=== PATIENT | female | born 2000 | race African-American/Black ===

== ENCOUNTER 2020-01-02 02:13 | Emergency (ER) | payer SELFPAY ==
[2020-01-02] MEDS ORDERED: LEVETIRACETAM 500 MG/5 ML VIAL IV ONE (02:48)
[2020-01-02] MEDS ORDERED: THIAMINE 200 MG/2 ML INJ ONE (02:48)
[2020-01-02 02:49] LABS: Absolute Lymphocytes (CBC) 3.1 K/uL (0.7-4.9); Basophils % 0.5 % (0-1.3); Hematocrit 38.6 % (36.0-45.0); Lymphocytes % 36.8 % (15.3-44.8); Protime INR 1.07; RBC Red Blood Cell Count 4.26 M/uL (3.86-4.86)
[2020-01-02] MEDS ORDERED: MULTIVITAMINS 10 ML VIAL (INJ) IV ONE (02:49)
[2020-01-02] MEDS ORDERED: NA CHLORIDE 0.9% 2,000 ML ONE (02:50)
[2020-01-02] MEDS ORDERED: FOLIC ACID 5 MG/ML VIAL ONE (02:50)
[2020-01-02 03:04] LABS: ALT/SGPT 17 U/L (12-78); AST/SGOT 20 U/L (15-37); Alkaline Phosphatase 78 U/L (45-117); BUN Blood Urea Nitrogen 11 mg/dL (7-18); Bicarbonate 22 mmol/L (21-32); Bilirubin Direct 0.1 mg/dL (0-0.2); Bilirubin Total 0.2 mg/dL (0.2-1.0); Glucose Level 87 mg/dL (74-106); Potassium 3.3 mmol/L (3.5-5.1); Protein, Total 7.8 g/dL (6.4-8.2); Sodium Level 144 mmol/L (136-145)
[2020-01-02 03:35] LABS: Urine Blood NEGATIVE (NEG); Urine Glucose NEGATIVE (NEG); Urine Protein NEGATIVE (NEG); Urine Specific Gravity 1.015 (1.005-1.030)
[2020-01-02 03:39] LABS: Barbiturates NEGATIVE (NEGATIVE); Benzodiazepines NEGATIVE (NEGATIVE); Cocaine NEGATIVE (NEGATIVE); METHAMPHETAM NEGATIVE (NEGATIVE); Methadone NEGATIVE (NEGATIVE); Opiates NEGATIVE (NEGATIVE); Phencyclidine NEGATIVE (NEGATIVE); THC Cannibis NEGATIVE (NEGATIVE)
--- NOTE | 2020-01-02 04:22 | EDPHYS ---
Physician Documentation [facility] Name: Alicia Velez Age: 19 yrs Sex: Female : 2000 Arrival Date: 01/02/2020 Time: 02:19 Bed 3 Private MD: MAXIMILIANO Physician Angel Ryan HPI: 01/01 02:32 This 19 yrs old Black Female presents to ER via EMS with complaints of seizure after teetee drinking. 02:32 The patient presents after having a single isolated seizure, that lasted an unknown teetee period of time. Character of seizure(s): Loss of consciousness: the patient experienced loss of consciousness, Motor activity: generalized. Seizure onset: just prior to arrival. Context: the seizure(s) was witnessed, by a significant other, boyfriend. Seizure Hx: Last seizure: The patient's last seizure was approximately 3 year(s) ago. Associated injury: The patient did not suffer any apparent associated injury. EMS care: none. The patient has not experienced similar symptoms in the past. [employer] SPECIALIST: 03:00 LMP 11/2019 Historical: - Allergies: 02:28 No Known Allergies; - Home Meds: 02: None [Active]; - PMHx: 02:28 Seizures; - PSHx: 02: None; - Immunization history:: Adult Immunizations up to date. - Social history:: Smoking status: Patient reports the use of cigarette tobacco products, smokes one-half pack cigarettes per day. - Family history:: not pertinent. ROS: 02:32 Constitutional: Negative for fever, chills, and weight loss, Eyes: Negative for injury, teetee pain, redness, and discharge, ENT: Negative for injury, pain, and discharge, Neck: Negative for injury, pain, and swelling, Cardiovascular: Negative for chest pain, palpitations, and edema, Respiratory: Negative for shortness of breath, cough, wheezing, and pleuritic chest pain, Abdomen/GI: Negative for abdominal pain, nausea, vomiting, diarrhea, and constipation, Back: Negative for injury and pain, : Negative for injury, bleeding, discharge, and swelling, MS/Extremity: Negative for injury and deformity, Skin: Negative for injury, rash, and discoloration, Psych: Negative for depression, anxiety, suicide ideation, homicidal ideation, and hallucinations, Allergy/Immunology: Negative for hives, rash, and allergies, Endocrine: Negative for neck swelling, polydipsia, polyuria, polyphagia, and marked weight changes, Hematologic/Lymphatic: Negative for swollen nodes, abnormal bleeding, and unusual bruising. 02:32 Neuro: Positive for seizure activity. Exam: 02:32 Constitutional: This is a well developed, well nourished patient who is awake, alert, teetee and in no acute distress. Head/Face: Normocephalic, atraumatic. Eyes: Pupils equal round and reactive to light, extra-ocular motions intact. Lids and lashes normal. Conjunctiva and sclera are non-icteric and not injected. Cornea within normal limits. Periorbital areas with no swelling, redness, or edema. ENT: Nares patent. No nasal discharge, no septal abnormalities noted. Tympanic membranes are normal and external auditory canals are clear. Oropharynx with no redness, swelling, or masses, exudates, or evidence of obstruction, uvula midline. Mucous membranes moist. Neck: Trachea midline, no thyromegaly or masses palpated, and no cervical lymphadenopathy. Supple, full range of motion without nuchal rigidity, or vertebral point tenderness. No Meningismus. Chest/axilla: Normal chest wall appearance and motion. Nontender with no deformity. No lesions are appreciated. Cardiovascular: Regular rate and rhythm with a normal S1 and S2. No gallops, murmurs, or rubs. Normal PMI, no JVD. No pulse deficits. Respiratory: Lungs have equal breath sounds bilaterally, clear to auscultation and percussion. No rales, rhonchi or wheezes noted. No increased work of breathing, no retractions or nasal flaring. Abdomen/GI: Soft, non-tender, with normal bowel sounds. No distension or tympany. No guarding or rebound. No evidence of tenderness throughout. Back: No spinal tenderness. No costovertebral tenderness. Full range of motion. Female : Normal external genitalia. Skin: Warm, dry with normal turgor. Normal color with no rashes, no lesions, and no evidence of cellulitis. MS/ Extremity: Pulses equal, no cyanosis. Neurovascular intact. Full, normal range of motion. Psych: Awake, alert, with orientation to person, place and time. Behavior, mood, and affect are within normal limits. 02:32 Neuro: Orientation: unable to test, Mentation: slow to respond, unable to test, Memory: unable to test, Cranial nerves: grossly normal, is grossly normal based on the patient's age, no acute changes, Cerebellar function: is grossly normal, Motor: is normal, Sensation: is normal, no obvious gross deficits, appropriate no acute changes, Gait: not tested. Deep tendon reflexes are 2+ (normal) in the bilateral brachioradialis, bicep, tricep and patellar and Achilles tendons, Babinski testing is normal, seizure activity, is not displayed by the patient. 03:24 ECG was reviewed by the Attending Physician. teetee Vital Signs: 02:21 BP 130 / 90; Pulse 73; Resp 18; Temp 98.2; Pulse Ox 99% on R/A; Weight 58.97 kg; Height wh 5 ft. 4 in. (162.56 cm); 03:00 BP 130 / 81; Pulse 91; Resp 18; Pulse Ox 100% on R/A; wh 04:06 Pulse 88; Resp 18; Pulse Ox 100% on R/A; mg2 04:47 BP 108 / 70; mg2 02:21 Body Mass Index 22.31 (58.97 kg, 162.56 cm) wh MDM: 02:36 Data reviewed: vital signs, nurses notes, lab test result(s), EKG, radiologic studies, teetee CT scan, plain films. 02:38 Patient medically screened. teetee 04:18 Differential diagnosis: drug overdose, cardiac arrhythmia, seizure, TIA. Data teetee interpreted: library monitor: rate is 88 beats/min, rhythm is normal sinus rhythm, Pulse oximetry: on room air is 100 %. Test interpretation: by ED physician or midlevel provider: ECG, plain radiologic studies. Counseling: I had a detailed discussion with the patient and/or guardian regarding: the historical points, exam findings, and any diagnostic results supporting the discharge/admit diagnosis, the presence of at least one elevated blood pressure reading (>120/80) during this emergency department visit, lab results, radiology results, the need for outpatient follow up, for definitive care, a neurologist. ED course: pt stable, all labs and findings discussed with the patient. 01/01 02:23 Order name: Acetaminophen; Complete Time: 03:21 teetee 01/01 02:23 Order name: Basic Metabolic Panel; Complete Time: 03: teetee 01/01 02:23 Order name: CBC with Diff; Complete Time: 03:21 [facility] 01/01 02:23 Order name: ETOH Level; Complete Time: 03:21 [facility] 01/01 02:23 Order name: Hepatic Function; Complete Time: 03:21 [facility] 01/01 02:23 Order name: PT-INR; Complete Time: 03:21 [facility] 01/01 02:23 Order name: Ptt, Activated; Complete Time: 03:21 [facility] 01/01 02:23 Order name: Salicylate; Complete Time: 03:21 [facility] 01/01 02:23 Order name: Urine Drug Screen; Complete Time: 04:18 [facility] 01/01 02:23 Order name: CT Head Brain wo Cont [facility] 01/01 02:30 Order name: Glucose, Ancillary Testing [facility] 01/01 03:25 Order name: Urine Dipstick--Ancillary (enter results); Complete Time: 04:18 [facility] 01/01 03:25 Order name: Urine --Ancillary (enter results); Complete Time: 04:18 [facility] 01/01 02:23 Order name: Urine Test (obtain specimen); Complete Time: 03:09 [facility] 01/01 02:23 Order name: EKG; Complete Time: 02:25 [facility] 01/01 02:23 Order name: EKG - Nurse/Tech; Complete Time: 02:35 [facility] 01/01 02:23 Order name: IV Saline Lock; Complete Time: 02:35 [facility] 01/01 02:23 Order name: Labs collected and sent; Complete Time: 02:35 [facility] 01/01 02:23 Order name: Urine Dipstick-Ancillary (obtain specimen); Complete Time: 03:09 [facility] 01/01 03:24 Order name: PO challenge: juice; Complete Time: 05:15 [facility] EC:24 Rate is 81 beats/min. Rhythm is regular. QRS [place] is Normal. NE interval is normal. QRS teetee interval is prolonged. QT interval is normal. No Q waves. T waves are Normal. No ST changes noted. Clinical impression: NSR w/ Non-specific ST/T Changes and No evidence of ischemia. Interpreted by me. Reviewed by me. Administered Medications: :47 Drug: Thiamine 100 mg Route: IV; Rate: bolus; Site: right antecubital; mg2 05:15 Follow up: Response: No adverse reaction; IV Status: Completed infusion 02:47 Drug: Banana Bag - (NS 0.9% 1000 ml, foLIC Acid 1 mg, Thiamine 100 mg, Multivitamin 1 mg2 amp) Route: IV; Rate: 125 ml/hr; Site: right antecubital; 05:15 Follow up: Response: No adverse reaction; IV Status: Order to discontinue infusion 02:49 Drug: Keppra 1000 mg Route: IV; Rate: per protocol; Site: right antecubital; mg2 05:15 Follow up: Response: No adverse reaction; IV Status: Completed infusion 02:49 Drug: NS 0.9% 1000 ml Route: IV; Rate: 1 bolus; Site: right antecubital; mg2 05:15 Follow up: Response: No adverse reaction; IV Status: Completed infusion Disposition: 01/02/20 04:21 Discharged to Home. Impression: Epileptic seizures related to external causes, Hypokalemia, Alcohol abuse with intoxication. - Condition is Fair. - Discharge Instructions: Alcohol Intoxication, Potassium Content of Foods, Seizure, Adult, Alcohol Intoxication, [id number], Alcohol Abuse and Nutrition, Seizure, Adult, [id number], Hypokalemia. - Prescriptions for Keppra 500 mg Oral Tablet - take 1 tablet by ORAL route every 12 hours; 20 tablet. Pepcid 20 mg Oral Tablet - take 1 tablet by ORAL route every 12 hours for 10 days; 20 tablet. Vitamin 27- 0.8 mg Oral Tablet - take 1 tablet by ORAL route once daily; 30 tablet. - Medication Reconciliation Form, Thank You Letter, Antibiotic Education, Prescription Opioid Use form. - Follow up: Private Physician; When: 2 - 3 days; Reason: Recheck today's complaints, Continuance of care, Re-evaluation by your physician. Follow up: Ramiro Siu; When: 2 - 3 days; Reason: Recheck today's complaints, Re-evaluation by your physician. - Problem is new. - Symptoms have improved. Signatures: Dispatcher [employer] EDMS Angel Ryan MD MD cha Habalo, Les Aidan Melendez, RN RN mg2 Corrections: (The following items were deleted from the chart) 05:25 04:21 01/02/2020 04:21 Discharged to Home. Impression: Epileptic seizures related to external causes; Hypokalemia; Alcohol abuse with intoxication. Condition is Fair. Discharge Instructions: Alcohol Intoxication, Potassium Content of Foods, Seizure, Adult, Alcohol Intoxication, Ckvf-fz-Ppho, Alcohol Abuse and Nutrition, Seizure, Adult, Ufwh-bz-Xpak, Hypokalemia. Prescriptions for Keppra 500 mg Oral Tablet - take 1 tablet by ORAL route every 12 hours; 20 tablet, Pepcid 20 mg Oral Tablet - take 1 tablet by ORAL route every 12 hours for 10 days; 20 tablet, Vitamin 27-0.8 mg Oral Tablet - take 1 tablet by ORAL route once daily; 30 tablet. and Forms are Medication Reconciliation Form, Thank You Letter, Antibiotic Education, Prescription Opioid Use. Follow up: Private Physician; When: 2 - 3 days; Reason: Recheck today's complaints, Continuance of care, Re-evaluation by your physician. Follow up: Ramiro Siu; When: 2 - 3 days; Reason: Recheck today's complaints, Re-evaluation by your physician. Problem is new. Symptoms have improved. teetee
--- NOTE | 2020-01-02 04:22 | ER ---
Nurse's Notes [facility] Name: Alicia Velez Age: 19 yrs Sex: Female : 2000 Arrival Date: 01/02/2020 Time: 02:19 Bed 3 Private MD: Diagnosis: Epileptic seizures related to external causes;Hypokalemia;Alcohol abuse with intoxication Presentation: 01/01 02:21 Chief complaint: EMS states: was toned for seizure activity and vomiting. Pt had wh alcohol tonight and haven't had a seizure activity in 3 years. Coronavirus screen: Proceed with normal triage. Patient denies a cough. Patient denies shortness of breath or difficulty breathing. Patient denies measured and/or subjective temperature greater than 100.4F prior to today's visit. Patient denies travel on a cruise ship or to a country the [facility] currently lists as an affected area. Patient denies contact with known and/or suspected case of COVID-19. Ebola Screen: Patient negative for fever greater than or equal to 101.5 degrees Fahrenheit, and additional compatible Ebola Virus Disease symptoms Patient denies exposure to infectious person. Initial Sepsis Screen: Does the patient meet any 2 criteria? No. Patient's initial sepsis screen is negative. Does the patient have a suspected source of infection? No. Patient's initial sepsis screen is negative. Risk Assessment: Do you want to hurt yourself or someone else? Patient reports no desire to harm self or others. Onset of symptoms was January 02, 2020. 02:21 Method Of Arrival: EMS: [facility] 02:21 Acuity: [facility] 3 RN UTILIZATION MANAGEMENT UM: 03:00 [facility] 11/2019 Historical: - Allergies: 02:28 No Known Allergies; - Home Meds: 02:28 None [Active]; - PMHx: 02:28 Seizures; - PSHx: 02:28 None; - Immunization history:: Adult Immunizations up to date. - Social history:: Smoking status: Patient reports the use of cigarette tobacco products, smokes one-half pack cigarettes per day. - Family history:: not pertinent. Screenin:26 Abuse screen: Denies threats or abuse. Denies injuries from another. Nutritional screening: No deficits noted. Tuberculosis screening: No symptoms or risk factors identified. VAN Screening: Arm Drift: Patient shows no arm weakness. Visual Disturbance: No visual disturbance noted. Aphasia: No aphasia noted. Neglect: No neglect noted. Fall Risk None identified. Assessment: 02:26 General: Appears in no apparent distress. Behavior is quiet. Pain: Denies pain. Neuro: Level of Consciousness is awake, alert, obeys commands. Cardiovascular: Heart tones S1 S2. Respiratory: Airway is patent Respiratory effort is even, unlabored, Respiratory pattern is regular, symmetrical, Breath sounds are clear bilaterally. GI: Abdomen is flat, non-distended. : No signs and/or symptoms were reported regarding the genitourinary system. EENT: No signs and/or symptoms were reported regarding the EENT system. Derm: Skin is intact, is healthy with good turgor, Skin is pink, warm \T\ dry. normal. Musculoskeletal: Circulation, motion, and sensation intact. 03:30 Reassessment: Patient appears in no apparent distress at this time. No changes from previously documented assessment. Patient and/or family updated on plan of care and expected duration. Pain level reassessed. 04:57 Reassessment: Patient appears in no apparent distress at this time. at bedside. mg2 responds to verbal stimuli but easily goes back to sleep state. Vital Signs: 02:21 BP 130 / 90; Pulse 73; Resp 18; Temp 98.2; Pulse Ox 99% on R/A; Weight 58.97 kg; Height 5 ft. 4 in. (162.56 cm); 03:00 BP 130 / 81; Pulse 91; Resp 18; Pulse Ox 100% on R/A; wh 04:06 Pulse 88; Resp 18; Pulse Ox 100% on R/A; mg2 04:47 BP 108 / 70; mg2 02:21 Body Mass Index 22.31 (58.97 kg, 162.56 cm) ED Course: 02:19 Patient arrived in ED. 02:21 Angel Ryan MD is Attending Physician. [facility] 02:21 Les Torres is Primary Nurse. 02:25 Triage completed. 02:28 Arm band placed on right wrist. 02:28 Patient has correct armband on for positive identification. Bed in low position. Call light in reach. Side rails up X 1. flame annealing machine setter on. Pulse ox on. NIBP on. 02:28 Inserted saline lock: 20 gauge in right antecubital area, using aseptic technique. Blood collected. 03:22 Door closed. Warm blanket given. Cleaned of incontinence. Linen changed. mg2 03:40 CT Head Brain wo Cont In Process Unspecified. EDMS 04:02 No provider procedures requiring assistance completed. mg2 04:21 Ramiro Siu MD is Referral Physician. [facility] 05:24 IV discontinued, intact, bleeding controlled, No redness/swelling at site. Administered Medications: 02:47 Drug: Thiamine 100 mg Route: IV; Rate: bolus; Site: right antecubital; mg2 05:15 Follow up: Response: No adverse reaction; IV Status: Completed infusion 02:47 Drug: Banana Bag - (NS 0.9% 1000 ml, foLIC Acid 1 mg, Thiamine 100 mg, Multivitamin 1 mg2 amp) Route: IV; Rate: 125 ml/hr; Site: right antecubital; 05:15 Follow up: Response: No adverse reaction; IV Status: Order to discontinue infusion 02:49 Drug: Keppra 1000 mg Route: IV; Rate: per protocol; Site: right antecubital; mg2 05:15 Follow up: Response: No adverse reaction; IV Status: Completed infusion 02:49 Drug: NS 0.9% 1000 ml Route: IV; Rate: 1 bolus; Site: right antecubital; mg2 05:15 Follow up: Response: No adverse reaction; IV Status: Completed infusion Outcome: 04:21 Discharge ordered by . [facility] 05:24 Discharged to home via wheelchair, with family. 05:24 Condition: stable 05:24 Discharge instructions given to patient, family, Instructed on discharge instructions, follow up and referral plans. medication usage, POC Demonstrated understanding of instructions, follow-up care, medications, POC Prescriptions given X 3. 05:25 Patient left the ED. Signatures: Dispatcher [employer] EDNJ Angel Ryan MD MD cha Habalo, Winsy Aidan Melendez RN RN mg2 Corrections: (The following items were deleted from the chart) 02:30 02:26 Neuro: Level of Consciousness is awake, alert, obeys commands, Oriented to person, place, time, situation, Appropriate for age
[2020-01-02 05:45] VITALS: TEMP 98.2
[2020-01-02 05:50] VITALS: O2SAT 100
[2020-01-02 05:52] VITALS: BP 108/70
--- NOTE | 2020-01-02 06:20 | EKG ---
Test Date: 2020-01-02 Test Time: 02:16:57 [employer]: GERDA MEASUREMENT RESULTS: Intervals: Rate: 81 DE: 126 QRSD: 86 QT: 380 QTc: 441 [place]: P: 72 DE: 126 QRS: 3 T: 38 INTERPRETIVE STATEMENTS: Normal sinus rhythm Possible Left atrial enlargement RSR' or QR pattern in V1 suggests right ventricular conduction delay Septal infarct, age undetermined Abnormal ECG No previous ECG available for comparison Electronically Signed On 01-02-20 06:19:40 CDT by Braydon Martinez
--- NOTE | 2020-01-02 19:36 | RAD REPORT ---
EXAM DESCRIPTION: CT - Head Brain Wo Cont - 01/02/2020 4:28 am CLINICAL HISTORY: Dizziness;Seizure COMPARISON: None Available. TECHNIQUE: Contiguous axial images of the brain were obtained without the administration of intraven ous contrast. Coronal and sagittal reformats obtained and reviewed. This exam was performed accordi ng to our departmental dose-optimization program which includes use of Automated Exposure Control, ad justment of the mA and/or kV according to patient size and/or use of iterative reconstruction techniq ue. FINDINGS: Brain: No hemorrhage. No territorial infarct. No mass effect. No herniation. Ventricles: Within normal limits for patient's age. Bones: No acute osseous abnormality. Paranasal sinuses: Unremarkable. Mastoid air cells: Unremarkable. Soft tissues: No acute abnormality. IMPRESSION: No acute intracranial abnormalities. Electronically signed by: Og Mtz DO 01/02/2020 3:47 AM CDT Due to temporary technical issues with the PACS/Fluency reporting system, reports are being signed by the in house radiologistwithout review asa courtesy toensure prompt reporting. The interpreting radi ologist is fully responsible for the content of the report.
== END 2020-01-02 05:25 | disposition home or self-care (01) ==
LOC: ER 02:13
DX: E87.6 Hypokalemia (principal); F10.129 Alcohol abuse with intoxication, unspecified; F17.210 Nicotine dependence, cigarettes, uncomplicated
CPT/HCPCS: 36415; 70450; 80048; 80076; 80307; 80320; 80329; 81003; 81025; 82947; 85025; 85610; 85730; 93005; 96365; 96367; 96368; 99285; J1953; J3411; J7030